=== PATIENT | female | born 1950 | race Caucasian/White ===

== ENCOUNTER 2017-06-16 09:00 | Day surgery (SDC) | payer MEDICARE, OTHER ==
[~2017-06-16 09:00] MED LIST: Lactated Ringers 1,000 ML IV SCH; Lidocaine 4% 5 ML Amp ONE
[2017-06-16] MEDS ORDERED: Propofol 200 MG/20 ML SDV ONE ×2 (11:17→12:25)
[2017-06-16] MEDS ORDERED: fentaNYL 100 MCG/2 ML SDV ONE (11:17)
[2017-06-16] MEDS ORDERED: Midazolam 1 MG/ML 2 ML SDV ONE (11:18)
[2017-06-16] MEDS ORDERED: Ondansetron 4 MG/2 ML SDV IVPUSH PRN (13:00)
[2017-06-16] MEDS ORDERED: Dexamethasone 4 MG/ML SDV IVPUSH ONE (13:00)
[2017-06-16] MEDS ORDERED: Haloperidol Lactate 5 MG/ML SDV IV ONE (14:05)
[2017-06-16] MEDS ORDERED: Promethazine Topical Gel 0.5 ML Syringe TOP ONE (14:06)
--- NOTE | 2017-06-16 20:53 | OR ---
DATE OF SURGERY: 06/16/2017. REFERRING PROVIDER: Dr. Jacobs. PRE-OPERATIVE DIAGNOSES: 1. Positive FIT stool card. The patient states she does have a history of multiple previous scopes. She has had at least 1 where they were not able to obtain cecal intubation and she attempted to do barium enema but developed a significant discomfort along with nausea and vomiting. She states she does not want any repeat barium enema in the future. 2. Chronic nausea and vomiting. 3. Early satiety and recent weight loss. POST-OPERATIVE DIAGNOSES: 1. Incomplete colonoscopy. As I was only able to safely advance the scope to 40 cm. 2. Tortuous sigmoid colon with what seemed to be corkscrew like orientation along with sharp turn making further advancement of the scope unsafe today. 3. Three 8 mm colon polyp at 22 cm removed with hot snare. 4. Minimal proctitis noted. Cold biopsies x3 bites taken. PROCEDURE: Incomplete colonoscopy. As I was only able to advance the scope to about 40 cm. SURGEON: Tyler Joy M.D. ANESTHESIA: Monitored anesthesia care. BOWEL PREP: The patient was not able to tolerate the colon prep very well, did have nausea and vomiting. She did still have particulate stool and was given Fleet enema prior to procedure. DESCRIPTION OF PROCEDURE: Krystina Pardo is a 67-year-old female who was brought to the endoscopy suite after discussing risks and benefits of the procedure. Informed consent was obtained for conscious sedation and colonoscopy with or without biopsy and/or polypectomy. We also discussed possibility of missed lesions. Pre-procedure exam was unremarkable. IV, oxygen, and monitors were placed. The patient was placed in the left lateral decubitus position. Sedation was administered and a digital rectal exam performed and unremarkable. Colonoscope was passed in the rectum and slowly advanced to about 40 cm. Cecum was viewed and photographed. The patient's colon was noted to be significantly tortuous, deemed unsafe to continue to try to advance the scope given the resistance that was met. I did try some abdominal pressure along with moving the patient onto her back but this was not helpful. The colonoscope was slowly withdrawn and the mucosa was closed observed in a direct circumferential manner. At about 22 cm from the anal verge, an 8 mm polyp was noted and photographed. This was removed with hot snare. The rectal mucosa did reveal what looked like some minimal proctitis which appeared to be chronic. Cold biopsy x3 bites taken. Retroflexion was performed and rectal mucosa was otherwise unremarkable. Scope was removed. The patient tolerated the procedure well. The patient was monitored until that baseline status. Discharge instructions were reviewed and the patient was discharged in good condition. COMPLICATIONS: None. TOTAL TIME: 24 minutes. ESTIMATED BLOOD LOSS: About 1 mL. RECOMMENDATIONS/FOLLOW-UP: We will await results of path report regarding the polyp removed as well as the rectal biopsies. With regard to the incomplete colonoscopy, I would check to see when exactly her last scope procedure was. She states Dr. Vazquez has been able to complete some of her colonoscopies since the previous incomplete 1 year back. She is not interested in doing barium enema. Other option would be, she can see Gastroenterology and consider having them attempt colonoscopy. I would recommend we try to get her nausea under better control prior to having her repeat prep. I would like to kindly thank Dr. Jacobs for this referral. DMB: 06/16/2017 14:39:56 MODL: 06/16/2017 20:45:38 /[id number]
--- NOTE | 2017-06-16 21:15 | OR ---
SURGERY DATE: 06/16/2017. REFERRING PROVIDER: Jose Jacobs M.D. PRE-OPERATIVE DIAGNOSES: 1. Chronic recurrent nausea, vomiting. 2. Early satiety with recent 5-10 pound weight loss. 3. Dysphagia. 4. Positive FIT stool card. Patient is currently on omeprazole 20 mg twice a day. She does have history of diabetes which sounds like it is poorly controlled. POST-OPERATIVE DIAGNOSES: 1. Chronic appearing mild antritis . 2. No esophageal stenosis, Schatzki's ring, esophageal or stomach masses. The patient did have a slightly prominent pyloric fold but did not seem to be causing any blockage. 3. Tiny hiatal hernia without any significant esophagitis. PROCEDURE: EGD with antral biopsies using cold forceps. SURGEON: Tyler Joy M.D. ANESTHESIA: Monitored anesthesia care. Krystina Pardo is a 67-year-old female who was brought to the endoscope suite after discussion of risks and benefits (including but not limited to reaction to medication, bleeding, infection, aspiration, perforation). Informed consent was obtained for monitored anesthesia care and esophagogastroduodenoscopy along with possible biopsy and/or dilatation. Pre-procedure exam including oral cavity was unremarkable except for poor dentition. IV, oxygen, and monitors were placed. Patient was placed in the left lateral position and sedation was administered. A bite block was placed gently and scope lightly lubricated and passed through the bite block and over the tongue. Hypopharynx and vocal cords were visualized and unremarkable. Scope was passed through the cricopharynx and into the esophagus. The scope was then passed through the distal esophagus and the GE junction was visualized and photographed. The GE junction revealed a tiny sliding type hiatal hernia without any evidence of inflammation. Second and third portions of the duodenum were unremarkable. Duodenal bulb was visualized and unremarkable. The pylorus and the antrum were viewed. There was slightly prominent pyloric fold noted but this was not causing any obstruction. There was also some chronic appearing mild enteritis. Cold biopsy x2 bites taken for H. pylori and path. There were no stomach masses or ulcers noted. The angularis, fundus, body, and cardia were unremarkable. The stomach was desufflated of air and then the scope was slowly withdrawn, and the esophagus was closely visualized during withdrawal all the way into the posterior pharynx. In the upper esophagus there was an area of heterotopic type mucosa. Cold biopsy x2 bites was taken of this area and sent for path. The patient tolerated the procedure well and went to recovery in stable condition. The patient was monitored until at baseline status. Findings and discharge instructions were reviewed and the patient was discharged in good condition. COMPLICATIONS: None TOTAL TIME: 8 minutes. ESTIMATED BLOOD LOSS: About 1 mL. RECOMMENDATIONS/FOLLOW-UP: We will await results of antral biopsies. We would like to keep the patient on her omeprazole, current dose of 20 mg twice a day. For the recurrent nausea and vomiting, I do not appreciate any sinister pathology on the scope today. There is a high likelihood that this could represent some diabetic gastroparesis. Could consider medications like Reglan to see if this could help. Otherwise consider gastroenterology referral for hyperemesis type syndrome. I would like to kindly thank Dr. Jacobs for this referral. DMB: 06/16/2017 14:30:45 MODL: 06/16/2017 20:55:49 /[id number] MTDD
== END 2017-06-16 15:20 | disposition home or self-care (01) ==
LOC: VM.SDS 09:00
PROVIDERS: ATTEND Family Medicine
DX: D12.6 Benign neoplasm of colon, unspecified (principal); K62.1 Rectal polyp; K22.2 Esophageal obstruction; K44.9 Diaphragmatic hernia without obstruction or gangrene; K52.9 Noninfective gastroenteritis and colitis, unspecified; I10 Essential (primary) hypertension; E78.5 Hyperlipidemia, unspecified; E11.9 Type 2 diabetes mellitus without complications; E66.9 Obesity, unspecified; Z87.891 Personal history of nicotine dependence; Z90.49 Acquired absence of other specified parts of digestive tract; Z98.890 Other specified postprocedural states; Z79.4 Long term (current) use of insulin; Z79.899 Other long term (current) drug therapy
CPT/HCPCS: 00813; 43239; 45380; 45385; 82962; 88305; A9270; J1100; J2250; J2405; J2704; J3010; J7120